=== PATIENT | female | born 1950 | race Hispanic/Latino ===

== ENCOUNTER 2020-12-03 06:56 | Observation (INO) | payer OTHER, MEDICARE ==
[2020-12-03 07:43] LABS: Basophils # (Auto) 0.1 K/mm3 (0.0-0.1); Eosinophils # (Auto) 0.1 K/mm3 (0.0-0.4); Hematocrit 39.2 % (30.3-42.9); Hemoglobin 13.4 gm/dl (10.1-14.3); Lymphocytes # (Auto) 2.3 K/mm3 (1.2-5.4); Lymphocytes % (Auto) 37.7 % (13.4-35.0); Mean Corpuscular HGB Conc 34 % (30-34); Mean Corpuscular Volume 90 fl (79-97); Monocytes # (Auto) 0.4 K/mm3 (0.0-0.8); Monocytes % (Auto) 6.5 % (0.0-7.3); Platelet Count 231 K/mm3 (140-440); Red Blood Count 4.37 M/mm3 (3.65-5.03); Red Cell Distribution Width 13.8 % (13.2-15.2)
[2020-12-03 07:53] LABS: INR 1.09 (0.87-1.13)
[2020-12-03 07:54] LABS: Partial Thromboplastin Time 27.9 Sec. (24.2-36.6)
[2020-12-03 07:55] LABS: Blood Urea Nitrogen 25 mg/dL (7-17); Hemolysis Index 16
[2020-12-03] MEDS ORDERED: ASPIRIN EC 325 MG TAB PO SCH (08:00)
[2020-12-03] MEDS ORDERED: HEPARIN/NS 5000 UNIT/500ML 1,000 ML IR ONE (08:12)
[2020-12-03] MEDS ORDERED: HEPARIN 10,000 UNITS/10 ML VIAL ONE ×2 (08:12→09:30)
[2020-12-03] MEDS ORDERED: MIDAZOLAM 2 MG/2 ML INJ ONE (08:12)
[2020-12-03] MEDS ORDERED: LIDOCAINE (2%) 20 MG/1 ML VIAL 20 ML MDV INFILTRATI ONE (08:13)
[2020-12-03] MEDS ORDERED: VERAPAMIL 5 MG/2 ML INJ ONE (08:13)
[2020-12-03] MEDS: SODIUM CHLORIDE 0.9% 500 ML 500 ML IV SCH ×2 (08:21→09:06)
[2020-12-03 08:36] LABS: BUN/Creatinine Ratio 36
[2020-12-03] MEDS: fentaNYL 100 MCG/2 ML INJ ONE ×2 (09:07→10:41)
--- NOTE | 2020-12-03 09:09 | Short Stay Summary ---
Short Stay Documentation Date of service: 12/03/20 - History Principal diagnosis: Abnormal Stress Test H&P: obtained from office Past Medical History: COPD, hyperlipidemia Past Surgical History: appendectomy, cholecystectomy, hysterectomy, no valve replacement, no CABG, no PTCA Social history: , lives with family, smoking (former), no alcohol abuse - Allergies and Medications Current Medications: Allergies erythromycin base Allergy (Verified 12/03/20 07:19) Diarrhea meperidine [From Demerol] Allergy (Verified 12/03/20 07:19) Swelling Home Medications Medication Instructions Recorded Confirmed Last Taken Type Cholecalciferol (Vitamin D3) 50,000 unit PO QWEEK 12/03/20 12/03/20 11/26/20 History [Vitamin D3 50,000UNIT CAP] Active Medications Aspirin (Aspirin Ec 325 Mg Tab) 325 mg PO ONCE MORENO Stop: 12/03/20 17:00 Last Admin: 12/03/20 08:21 Dose: 325 mg Documented by: Sodium Chloride (Nacl 0.9% 500 Ml) 500 mls @ 50 mls/hr IV DIRECT MORENO Stop: 12/03/20 17:59 Last Admin: 12/03/20 08: Dose: 50 mls/hr Documented by: - Physical exam General appearance: no acute distress Integumentary: no rash, other (R radial site c/d/i - no evidence of bleeding or hematoma) HEENT: Atraumatic Lungs: Clear to auscultation (bilaterally) Heart: Normal S1, Normal S2, Murmur (grade 1/6 RAHEEL) Gastrointestinal: normal Extremities: pulses intact, No edema, normal temperature Neurological: Normal tone, Sensation intact - Brief post op/procedure progress note Date of procedure: 12/03/20 Pre-op diagnosis: Abnormal Stress Test Post-op diagnosis: other (CAD s/p PTCA) Surgeon: CRISTIANE GAN Estimated blood loss: none Pathology: none Condition: stable - Hospital course Hospital course: Pt presented on 12/03/2020 for elective LHC, which revealed diffuse calcifications, mild disease in the left coronary system with retrograde collaterals to the PDA, and severe stenosis in the mid RCA. S/p uncomplicated PHU placement in the mid RCA, with lesion reduced from more than 95% to 0%. However, residual lesions distal and proximal to the stent were noted, which would benefit from further intervention. Pt tolerated the procedure well. She is currently stable and has no complaints. Family present at bedside. Awaiting transfer to [facility] (Dr. Ramires) for further evaluation and management of the aforementioned lesions. Initiate bASA, Plavix, statin, and BB. - Disposition Condition at discharge: Good Disposition: [id number] ANOTHER TYPE HLTHCARE - Discharge Diagnoses (1) CAD (coronary artery disease) Status: Acute Qualifiers: Coronary Disease-Associated Artery/Lesion type: [place] artery [place] vs. transplanted heart: [place] heart (2) S/P PTCA (percutaneous transluminal coronary angioplasty) Status: Acute Short Stay Discharge Plan Activity: advance as tolerated Diet: low cholesterol, low salt Wound: per your surgeon's advice Follow up with: KAPIL DÍAZ NP [Primary Care Provider] - 7 Days WILI LOVE MD [Staff Physician] - 7 Days Forms: CardCath PCI D/C Instructions
[2020-12-03] MEDS ORDERED: CLOPIDOGREL 300 MG TAB ONE (10:27)
[2020-12-03] MEDS ORDERED: ALUM-MAG HYDROXIDE-SIMETHICONE 200-200-20MG/5ML ORAL LIQD 30 ML ONE (10:27)
[2020-12-03] MEDS ORDERED: HYDROcodone/ACETAMINOPHEN 5-325 MG TAB PO PRN (10:37)
[2020-12-03] MEDS ORDERED: traMADol 50 MG TAB PO PRN (11:00)
--- NOTE | 2020-12-03 13:29 | Cardiac Catherization Report ---
DATE OF SERVICE: 12/03/2020 CARDIAC CATHETERIZATION AND CORONARY INTERVENTION REPORT INDICATIONS: The patient is a 70-year-old female with significantly elevated calcium score of 2800, complaining of exertional dyspnea and also was noted to have abnormal stress nuclear imaging. Hence, scheduled for cardiac catheterization for definitive diagnosis and treatment. The patient is aware of the procedure, potential complications, and alternatives of therapy available. DESCRIPTION OF PROCEDURE: The patient was brought to the catheterization laboratory in a fasting condition. The patient was evaluated for moderate sedation and was felt to be appropriate candidate for moderate sedation and received IV Versed and fentanyl. Subsequently, the patient was monitored throughout the procedure with pulse oximetry and EKG monitoring and hemodynamic monitoring. The patient was prepared in standard fashion. Right radial access site was prepared with chlorhexidine solution, sterile drapes were applied, local anesthesia was given. Right radial artery puncture was made using 21-gauge arterial puncture needle. Subsequently, 5-Malaw[place] slender sheath was introduced. A 5-[place] multipurpose catheter was used to obtain the left ventriculogram done in [place] projection followed by angiograms of the left coronary artery. Subsequently, JR4 catheter was used to obtain the angiograms of the right coronary artery. At the end of the procedure, it was felt that the patient would benefit from intervention of the severe stenosis of the RCA, hence converted to interventional procedure. Cardiac catheterization findings are as follows: HEMODYNAMICS: 1. Opening aortic pressure 157/77. Left ventricular pressure 163/18. No gradient across the aortic valve. Estimated ejection fraction 55-60%. 2. Left ventriculogram done in [place] projection showed normal sized left ventricle with normal contractility. Mitral regurgitation could not be evaluated because of limited amount of dye injected. 3. Coronary angiography showed diffuse calcifications throughout the arterial tree. Left main showed very mild disease. LAD and its branches show mild irregularities. LAD curves around the apex. Circumflex artery and its branches show mild irregularities in addition to calcification. Right coronary artery on LCA injection, there is evidence of retrograde filling of the PDA and LV branches faintly. 4. Right coronary artery dominant vessel shows diffuse disease with moderate stenosis in the proximal part, severe stenosis focal more than 95-98% in the mid RCA in addition to moderate disease in the distal part. LV branch and PDA without significant disease. Collaterals as mentioned above from distal RCA to the PDA and LV branches on LCA injection. FINAL IMPRESSION: 1. Normal-sized left ventricle with normal contractility. End-diastolic pressure is 18 mmHg. 2. Diffuse calcifications noted. 3. Mild disease in the left coronary system with retrograde collaterals to the PDA and severe stenosis in the mid RCA. Considering the above angiographic picture, it was felt that the patient would benefit from intervention of the RCA. CORONARY INTERVENTION OF THE RIGHT CORONARY ARTERY: The patient has indwelling 5-Malawian slender sheath in the right radial artery. The patient was given heparin as anticoagulant. JR4 guiding catheter was used to engage the right coronary artery, and this showed the findings noted above. A 0.014 inch [place] XT wire was advanced across the lesion into the distal RCA without much difficulty. Subsequently, lesion was dilated with 2.5 x 15 mm [place] balloon with good result. Attempt was made to insert a 3.0 x 22 mm [place] stent in the mid RCA. However, could not advance the stent. Hence, a second Iron Man prem wire was advanced into the distal RCA and with the help of the Iron Man could advance the stent into the mid RCA including the severe lesion. It was inflated to 16 atmospheres with good result. Lesion was reduced from more than 95% to 0%. However, there is a focal haziness distal to the stent. CINDY 3 flow is still noted. However, attempted to advance a second stent distal to the RCA mid stent. However, in spite of getting prem wire with Iron Man could not advance the stent through the previously inserted stent. Because of the difficulty with passing the stent, procedure was aborted. At this time, the patient is stable. No complications of perforation or embolization or dissection. No EKG changes. Hemodynamically stable without chest pain. Procedure was aborted with good result at the primary site; however, residual lesions in the distal and proximal to the stent. FINAL IMPRESSION: Uncomplicated drug-eluting stent placement of the mid RCA with lesion reduced from more than 95% to 0%. However, residual lesions distal and proximal to the stent, would benefit from further intervention of these lesions even though the patient is stable. No untoward complications were noted. The patient received IV heparin as anticoagulant and ACT was 257 seconds post-procedure and received 600 mg of Plavix. At this time, the patient is stable, transferred to the room in stable condition. The patient's moderate sedation started at 9:07 a.m. and monitored up to 10:25 a.m. PLAN: At this time is to continue aspirin and Plavix in addition to atorvastatin and beta nancy. Would further intervene the proximal and distal RCA lesions at tertiary care center. Spoke with Dr. Ramires who will be making transfer to [facility] when bed is available. Findings were explained in detail to the patient. TID: [id number] RECEIPT: [id number] [facility]
[2020-12-03] MEDS: METOPROLOL TARTRATE 50 MG TAB PO SCH ×2 (13:59→21:56)
[2020-12-03] MEDS: HEPARIN 5,000 UNIT/1 ML VIAL SUB-Q SCH ×2 (13:59→21:56)
--- NOTE | 2020-12-03 14:51 | Electrocardiograph Report ---
[facility] Test Date: 2020-12-03 Test Time: 08:20:33 Pat Name: ANN MARIE ELIZABETH Department: Room: A483 Gender: F Safety Analyst: PAVEL : 1950 Requested By: CRISTIANE GAN Order Number: [id number] Reading MD: Yady Orlando Measurements Intervals Ira Rate: 71 P: 75 NM: 140 QRS: 31 QRSD: 93 T: 28 QT: 389 QTc: 422 Interpretive Statements Sinus rhythm No previous ECG available for comparison Electronically Signed On 12-03-2020 14:50:58 EDT by Yady Orlando
[2020-12-04 04:17] VITALS: BP 143/51
[2020-12-04] MEDS ORDERED: CLOPIDOGREL 75 MG TAB PO SCH (10:00)
[2020-12-04] MEDS ORDERED: ASPIRIN 81 MG TAB CHEW PO SCH (10:00)
== END 2020-12-04 06:20 | disposition other institution (70) ==
LOC: CATHLABREC 06:56 → 4A 11:38
PROVIDERS: ADMIT Internal Medicine; ATTEND Internal Medicine
DX: I25.10 Atherosclerotic heart disease of native coronary artery without angina pectoris (principal); R94.39 Abnormal result of other cardiovascular function study; J44.9 Chronic obstructive pulmonary disease, unspecified; E78.5 Hyperlipidemia, unspecified; R93.1 Abnormal findings on diagnostic imaging of heart and coronary circulation; R94.31 Abnormal electrocardiogram [ECG] [EKG]; Z90.49 Acquired absence of other specified parts of digestive tract; Z90.710 Acquired absence of both cervix and uterus; Z98.61 Coronary angioplasty status; Z87.891 Personal history of nicotine dependence; Z79.82 Long term (current) use of aspirin
CPT/HCPCS: 36415; 80048; 85025; 85347; 85610; 85730; 93005; 93458; 96372; A9270; C1725; C1769; C1874; C1887; C1894; C9600; G0378; J1644; J2250; J3010; J7040; 92928; Q9967